=== PATIENT | male | born 1950 | race African-American/Black ===

== ENCOUNTER 2025-01-20 22:40 | Emergency (ER) | payer MEDICARE, OTHER ==
[~2025-01-20] VITALS: Ht 167.6 cm; Wt 64.9 kg
[2025-01-20] MEDS ORDERED: SODIUM CHLORIDE 0.9% 1,000 ML IV ONE (23:10)
[2025-01-20 23:22] LABS: BASO # 0.0 10*3/uL (0.0-0.1); BASO % 0.8 % (0.0-1.0); EOS # 0.1 10*3/uL (0.0-0.4); EOS % 2.0 % (1.0-4.0); MEAN CELL VOLUME 99.2 fl (80.0-94.0); MEAN CORPUSCULAR HGB 30.3 pg (27.0-31.0); MEAN PLATELET VOLUME 9.2 fl (9.6-12.3); MONO # 0.4 10*3/uL (0.1-1.0); MONO % 8.1 % (3.0-9.0); NEUT # 3.4 10*3/uL (2.3-7.9); NEUT % 66.5 % (47.0-73.0); NUCLEATED RED BLOOD CELL 0.0 % (0.0-0.0); NUCLEATED RED BLOOD CELL 0.0 10*3/uL (0.0-0.0); PLATELET COUNT AUTOMATED 209 10*3/uL (130-400); RED CELL DISTRI WIDTH 14.3 % (0-14.5)
[2025-01-20 23:45] LABS: BUN 24 mg/dl (9-23); SGPT/ALT 41 U/L (5-49)
[2025-01-21] MEDS ORDERED: IOHEXOL 300 MG/ML 100 ML VIAL IV ONE (00:05)
[2025-01-21] MEDS ORDERED: IOHEXOL 300 MG/ML 100 ML VIAL ONE (00:35)
== END 2025-01-21 03:49 | disposition home or self-care (01) ==
LOC: ED 22:40
PROVIDERS: Internal Medicine
DX: R10.9 Unspecified abdominal pain (principal); Z85.528 Personal history of other malignant neoplasm of kidney; Z85.830 Personal history of malignant neoplasm of bone